=== PATIENT | female | born 1950 | race Caucasian/White ===

== ENCOUNTER → 2024-03-05 | Outpatient (CLI) | payer OTHER, MEDICAID, SELFPAY ==
[2024-03-05 10:23] LABS: Basophils # (Auto) 0.1 Thou/mm3 (0.0-0.2); Basophils % (Auto) 2 % (0-2.5); Eosinophils # (Auto) 0.1 Thou/mm3 (0.0-0.5); Eosinophils % (Auto) 3 % (0-10); Hematocrit 38.3 % (36.0-46.0); Immature Granulocytes % (Auto) 0 % (0-0); Lymphocytes # (Auto) 1.5 Thou/mm3 (1.0-4.8); Lymphocytes % (Auto) 42 % (10-50); Mean Corpuscular HGB Conc 33.9 g/dl (31.0-37.0); Mean Corpuscular Hemoglobin 30.9 pg (25.0-35.0); Mean Corpuscular Volume 91 fL (80-100); Monocytes # (Auto) 0.3 Thou/mm3 (0.0-0.8); Monocytes % (Auto) 10 % (0-12); Neutrophils # (Auto) 1.5 Thou/mm3 (1.8-7.7); Neutrophils % (Auto) 43 % (37-80); Nucleated Red Blood Cell % 0 /100 WBC (0); Platelet Count 287 Thou/mm3 (140-440); RDW Standard Deviation 41.3 fL (36.4-46.3); Red Blood Count 4.21 Miln/mm3 (4.00-5.20); White Blood Count 3.6 Thou/mm3 (3.6-11.0)
[2024-03-05 10:46] LABS: T4 (Thyroxine) 8.7 mcg/dL (4.5-10.9)
[2024-03-05 11:23] LABS: Alanine Aminotransferase 12 U/L (10-49); Albumin, Serum 4.3 gm/dL (3.4-4.8); Albumin/Globulin Ratio 1.9 (1.2-2.2); Alkaline Phosphatase 55 U/L (46-116); Anion Gap 10 (7-16); Aspartate Amino Transferase 17 U/L (0-34); BUN/Creatinine Ratio 20 Ratio (12-20); Bilirubin,Total 0.3 mg/dL (0.3-1.2); Blood Urea Nitrogen 18 mg/dL (9-23); Calcium 9.8 mg/dL (8.3-10.6); Calcium (Corrected) 9.8 mg/dL (8.5-10.1); Carbon Dioxide 26.2 mMol/L (20.0-31.0); Chloride 106 mMol/L (98-107); Creatinine (Component) 0.9 mg/dL (0.6-1.3); Globulin 2.3 gm/dL (2.3-3.5); Glucose 99 mg/dL (74-106); Osmolality,Calculated 285 (275-295); Potassium 3.9 mMol/L (3.4-5.1); Sodium 142 mMol/L (136-145); Thyroid Stimulating Hormone 4.09 uIU/mL (0.55-4.78); Total Protein 6.6 gm/dL (5.7-8.2); eGFR > 60 See Note
[2024-03-05 15:19] LABS: Cardiac Risk Estimate 4.4 RATIO (3.7-5.6); Cholesterol 255 mg/dL (132-200); HDL Cholesterol 58 mg/dL (40-60); LDL Cholesterol,Calculated 134 mg/dL (0-130); Triglycerides 315 mg/dL (30-150)
== END | disposition home or self-care (01) ==
LOC: COPL 09:44
PROVIDERS: PCP Family Medicine; Referring Provider Family Medicine; Visit Provider Family Medicine
DX: I10 Essential (primary) hypertension (principal); N95.8 Other specified menopausal and perimenopausal disorders; K21.9 Gastro-esophageal reflux disease without esophagitis; I25.10 Atherosclerotic heart disease of native coronary artery without angina pectoris; K59.00 Constipation, unspecified; R79.9 Abnormal finding of blood chemistry, unspecified
CPT/HCPCS: 36415; 80053; 80061; 84436; 84443; 85025

== ENCOUNTER → 2024-03-12 | Outpatient (CLI) | payer OTHER, MEDICAID, SELFPAY ==
--- NOTE | 2024-03-12 13:43 | XR_ITS ---
Examination: Cervical spine 3 views Technique one AP lateral coned AP odontoid cervical spine 3 views Exam date and time: 10/11/2023 1407 hours Comparison April 17, 2022 INDICATIONS: Patient fell 5 years ago with injury to the neck, neck pain FINDINGS: No cervical fracture Intact odontoid Advanced degenerative disc disease C3-C4, C5-C6, C6-C7 Incidental note prominent soft tissue carotid calcification IMPRESSION: No cervical fracture Advanced degenerative disc disease C3-C4, C5-C6, C6-C7
--- NOTE | 2024-03-12 13:44 | XR_ITS ---
Examination: Ribs, bilateral, with PA chest, 7 views Technique: Chest PA, RIBS AP, RPO, LPO right and left ribs, AP coned lower ribs 7 views Exam date and time: March 12, 2024 1400 hours INDICATIONS: Bilateral rib pain one year, patient fell with left rib fractures 5 years ago Findings: Normal heart size No pneumothorax Old fracture right first rib and left seventh rib and eighth rib No acute rib fractures No cortical bone destruction IMPRESSION: No pneumothorax pulmonary contusion or hemothorax Old rib fractures as above No acute rib fractures
== END | disposition home or self-care (01) ==
LOC: CDIM 13:35
PROVIDERS: PCP Family Medicine; Referring Provider Family Medicine; Visit Provider Family Medicine
DX: M50.31 Other cervical disc degeneration, high cervical region (principal); M54.2 Cervicalgia; R07.81 Pleurodynia; Z87.81 Personal history of (healed) traumatic fracture; S19.9XXS Unspecified injury of neck, sequela; S29.9XXS Unspecified injury of thorax, sequela; W19.XXXS Unspecified fall, sequela
CPT/HCPCS: 71111; 72040

== ENCOUNTER 2024-09-09 07:49 | Emergency (ER) | payer OTHER, MEDICAID, SELFPAY ==
[2024-09-09] VITALS (7 sets, daily range): BP systolic 150–172; BP diastolic 69–89; PULSE 53–88; RESP 14–20; TEMP 36.6; O2SAT 94–98; BMI 28.8
--- NOTE | 2024-09-09 08:16 | EKG_ITS ---
[facility] Test Date: 2024-09-09 Pat Name: FLORENCE RICARDO Department: Room: - Gender: Female Income Tax Preparer: : 1950 Requested By: ED Temporary Provider Order Number: [id number] Reading MD: ED Temporary Provider Measurements Intervals [place] Rate: 64 P: 58 OR: 184 QRS: 22 QRSD: 82 T: 60 QT: 404 QTc: 418 Interpretive Statements SINUS RHYTHM LOW QRS VOLTAGE IN PRECORDIAL LEADS [QRS DEFLECTION < 1.0 mV IN CHEST LEADS] Compared to ECG 12/12/2023 13:41:28 Low QRS voltage now present /store/S0/[id number].pdf
--- NOTE | 2024-09-09 08:16 | PD.EDADULT ---
ED General RME/HPI General Chief complaint: Dizziness Stated complaint: DIZZY/UP X 2 DAYS, CHEST PAIN WITH PALPATION TODAY Time Seen by Provider: 09/09/24 13:17 Arrival date/time: 09/09/24 07:49 Limitations: no limitations RME / HPI RME / HPI narrative: DR. ARMSTRONG MAIN ED EVALUATION: 74 year old female presents to the Emergency Department with complaints of dizziness and hypertension onset of symptoms this morning, but patient also had similar symptoms on Saturday 2 days ago. Normal gait. No vision problems. No neurological deficits. No other symptoms reported. PMHx: Hypertension, CAD, previous stent of the right coronary artery in the past, on Plavix, status post ovarian tumor removal, and a hiatal hernia. Social Hx: No tobacco, alcohol, or substance use. Related Data Home Medications ?Medication ?Instructions ?Recorded ?Confirmed dexlansoprazole 60 mg 60 mg PO QDAY ##0 12/12/14 12/13/23 capsule,biphase delayed release (Dexilant) docusate sodium 250 mg capsule 250 mg PO DAILY 03/26/22 12/13/23 estradiol 1 mg tablet 1 mg PO QDAY 03/26/22 12/13/23 hydrochlorothiazide 12.5 mg tablet 12.5 mg PO QAM 03/26/22 12/13/23 lisinopril 10 mg tablet 10 mg PO QDAY 03/26/22 12/13/23 clopidogrel 75 mg tablet (Plavix) 75 mg PO QDAY 06/27/23 12/13/23 Held on 12/16/23. Instructions: Resume on 12/18/23. estradiol 0.01% (0.1 mg/gram) 2 g vaginal DIRECTED 06/27/23 12/13/23 vaginal cream (Estrace) vibegron 75 mg tablet (Gemtesa) 75 mg PO QDAY 06/27/23 12/13/23 Previous Rx's ?Medication ?Instructions ?Recorded buspirone 7.5 mg tablet 7.5 mg PO BID #20 tabs 09/09/24 Allergies Allergy/AdvReac Type Severity Reaction Status Date / Time codeine Allergy Intermediate Vomiting Verified 12/13/23 14:43 Review of Systems Review of Systems Systems Reviewed: All systems reviewed, normal except as documented Past Medical History Past Medical History CARDIAC: Positive Cardiac Disorders, Angina, Coronary Artery Disease (CORONARY STENT X2 2010,2021), Hypercholesterolemia (TAKES MED) and Hypertension (TAKES MED) GASTROINTESTINAL: Positive Gastrointestinal Disorders, Hepatitis (C), Gall Bladder Disease (LAP), Diverticulitis, Hiatal Hernia, Hemorrhoids, Gastroesophageal Reflux Disease and Obesity GENITOURINARY: Positive Genitourinary Disorders (URINARY URGENCY) REPRODUCTIVE: Positive Previous Pregnancies (X3) MUSCULOSKELETAL: Positive Musculoskeletal Disorders, Arthritis and Fractures (5 broken ribs DUE TO FALL YRS AGO) PSYCHO/SOCIAL: Positive Depression and Anxiety OTHER HISTORY: Positive Chicken Pox, Measles and Mumps Family History FAMILY HISTORY: Positive Family Respiratory Disorders (sister has COPD), Family Cardiac Disorders (sister (mi)BROTHER,SISTER (HTN)), Family Cancer (mother had colon CA) and Family Surgery (SISTER,MOTHER,FATHER) Surgical History SURGICAL: Positive Cardiac Surgery, Coronary Stent (X2), Angiogram, Tonsillectomy, Abdominal Surgery and Hysterectomy (1973, tumor in ovary removal in [place] WITH PEG SALP) Social History SMOKING STATUS: Former smoker SECOND HAND EXPOSURE: No SUBSTANCE USE: does not use and marijuana ED Exam General Limitations: Present no limitations General appearance: Present alert and in no apparent distress Head Head exam: Present atraumatic, normocephalic and normal inspection Eye Eye exam: Present normal appearance, PERRL and EOMI ENT ENT exam: Present normal exam, normal oropharynx and mucous membranes moist Neck Neck exam: Present normal inspection, full ROM and trachea midline Chest Chest inspection: Present normal inspection and symmetric chest wall rise Respiratory Respiratory exam: Present normal lung sounds bilaterally Cardiovascular Cardiovascular exam: Present regular rate, normal rhythm and normal heart sounds Abdominal Exam Abdominal exam: Present soft and normal bowel sounds Extremities Exam Extremities exam: Present normal inspection and full ROM Back Exam Back exam: Present normal inspection and full ROM Neurological Exam Neurological exam: Present alert, oriented X3 and CN II-XII intact Psychiatric Psychiatric exam: Present normal affect and normal mood Skin Skin exam: Present warm, dry, intact and normal color Course Quality Measures none Orders Category Date Time Status CT Screening NOW Care 09/09/24 09:24 Active EKG (ED ONLY) *Do not use* NOW Care 09/09/24 08:[address] angio chest Stat Exams 09/09/24 09:[address] head/brain wo con Stat Exams 09/09/24 09:24 Completed EKG (ED Only) Stat Exams 09/09/24 08:16 Draft B-Type Natriuretic Peptide Stat Lab 09/09/24 08:27 Completed CBC Stat Lab 09/09/24 08:27 Completed Comprehensive Metabolic Panel Stat Lab 09/09/24 08:27 Completed LDH (Lactate Dehydrogenase) Stat Lab 09/09/24 08:27 Completed Magnesium Stat Lab 09/09/24 08:27 Completed Prothrombin Time with INR Stat Lab 09/09/24 08:27 Completed Troponin I Stat Lab 09/09/24 08:27 Completed Urinalysis Stat Lab 09/09/24 10:05 Completed Vital Signs Vital signs: Vital Signs Temperature 98 F 09/09/24 08:09 Pulse Rate 68 09/09/24 08:09 Respiratory Rate 18 09/09/24 08:09 Blood Pressure 169/70 H 09/09/24 08:09 Pulse Oximetry (%) 98 09/09/24 08:09 Oxygen Delivery Method Room Air 09/09/24 08:09 Discharge Plan Plan Patient Disposition: HOME (Self Care) Prescriptions/Referrals Prescriptions/Med Rec: New buspirone 7.5 mg tablet 7.5 mg PO BID Qty: 20 0RF No Action clopidogrel [Plavix] 75 mg tablet 75 mg PO QDAY Gemtesa 75 mg tablet 75 mg PO QDAY estradiol [Estrace] 0.01 % (0.1 mg/gram) cream 2 g vaginal DIRECTED Patient Comments: twice a week dexlansoprazole [Dexilant] 60 MG capsule,biphase delayed releas 60 mg PO QDAY Qty: 0 estradiol 1 mg Tablet 1 mg PO QDAY Rx Instructions: off 1 week; repeat cycle lisinopril 10 mg Tablet 10 mg PO QDAY docusate sodium 250 mg capsule 250 mg PO DAILY hydrochlorothiazide 12.5 mg Tablet 12.5 mg PO QAM Referrals: Tanisha Samuel MD [Primary Care Provider] - In 1 week Problem List Clinical Impression: Chest pain, Non-cardiac chest pain Patient/Caregiver Discharge Instructions Education Materials: ED Chest Pain, Noncardiac, ED Chest Pain, Uncertain Cause Print Language: Latvian Stand Alone Forms: Lizzy Award Info., Patient Portal Info Letter MDM Narrative MDM hospital course: I, Cony Nice am scribing for and in the presence of Dr. Armstrong. Differential diagnosis: Aortic dissection and PE. But likely hypertensive emergency and anxiety. Plan: Order head CT and chest CTA, then reevaluate. 1315: Patient remains clinically stable throughout the emergency department visit. Re-assessment at the time of disposition demonstrates that the patient is in no acute distress. We reviewed all the results, analysis, and treatment plans. Patient is amenable to discharge. Strict return precautions were outlined. Patient was discharged in stable condition. Discharged with chest pain and non-cardiac chest pain. Clinical Information Provided by patient Medical Records Reviewed [facility] Meds/Rx Considered, not Ordered None Labs/Rad/Tests considered, not Ordered None Chronic Illness/Social Conditions Add or document further as needed: Hypertension, CAD, previous stent of the right coronary artery in the past, on Plavix, status post ovarian tumor removal, and a hiatal hernia. EKG EKG Interpretation narrative: EKG#1: EKG at 0824 hours. Interpreted by me: sinus rhythm, rate 64, LVH, no ischemia, normal intervals Lab Interpretation Labs: see narrative above Imaging Radiology reports / interpretation(s): Procedure(s): CT head/brain wo con Accession Number(s): [id number] cc: Sanjay Escalona MD; Nci Retana MD; Tanisha Samuel MD~ Examination: CT brain head without contrast. 2-D sagittal coronal reconstructions Date and time of exam:September 09, 2024 1131 hours Comparison April 18, 2022 INDICATIONS: Generalized head pain today CTDI: vol (mGy):49.5 DLP: (mGycm):1028 Technique: Multiple CT axial sections of the brain have been obtained, 5 mm slice thickness. Contrast has not been administered. 2-D sagittal, coronal reconstructions have been obtained Low dose protocols were performed. One or more of the following dose reduction techniques were used; automated exposure control, adjustment of the mA and/or KV according to patient size, use of iterative reconstruction technique. Findings: No significant ventricular enlargement. Intra-axial or extra-axial hemorrhage density is not seen. No mass effect or midline shift Basal cisterns are not remarkable. Fourth ventricle is midline. Cranial vault intact. Impression: Negative for acute hemorrhage, mass effect or midline shift Advise clinical correlation follow-up accordingly Dictated By: Nic Retana MD Procedure(s): CT angio chest Accession Number(s): [id number] cc: Sanjay Escalona MD; Nic Retana MD; Tanisha Samuel MD~ Examination: CTA chest with intravenous contrast 2-D reconstructions 3-D reconstructions, vascular Date and time of exam: September 09, 2024 1137 hours INDICATIONS: Chest pain with cardiac palpitations today CTDI: vol (mGy) 13.5 DLP: (mGycm) 300 Technique: Multiple axial sections of the thorax have been obtained. 3 mm slice thickness, from below the hemidiaphragms to above the apices of the lungs. Mediastinal and lung density settings have been obtained. 2-D sagittal and coronal reconstructions. 3-D angiographic renderings, 3-D volume renderings, 3D post processing, vascular maximum intensity projections obtained. Contrast administered is 100 cc Isovue-370. Low dose protocols were performed. One or more of the following dose reduction techniques were used; automated exposure control, adjustment of the mA and/or KV according to patient size, use of iterative reconstruction technique. Findings: No thoracic aortic aneurysm dilatation or dissection Pulmonary artery segments are not enlarged No pulmonary artery filling defects No paratracheal tracheobronchial or bronchopulmonary adenopathy No pneumonia or pulmonary edema or pleural disease No visualized liver or splenic lesion Absent gallbladder No pancreatic or adrenal mass Kidneys partially visualized no hydronephrosis IMPRESSION: Negative for pulmonary artery emboli No pneumonia, pulmonary edema or pleural disease Dictated By: Nic Retana MD Medication Administration(s) none Diagnosis Differential diagnosis: Aortic dissection and PE. But likely hypertensive emergency and anxiety. Most likely dx, and/or detailed dx discussion: Chest pain Non-cardiac chest pain Dispositon Disposition: Discharge Home
--- NOTE | 2024-09-09 08:20 | PC.NURSE ---
PT WITH C/O ALMOST PASSING OUT ON SATURDAY AND SATURDAY. HEADACHE AND DIZZINESS SINCE SATURDAY.
--- NOTE | 2024-09-09 09:24 | XR_ITS ---
Examination: CTA chest with intravenous contrast 2-D reconstructions 3-D reconstructions, vascular Date and time of exam: September 09, 2024 1137 hours INDICATIONS: Chest pain with cardiac palpitations today CTDI: vol (mGy) 13.5 DLP: (mGycm) 300 Technique: Multiple axial sections of the thorax have been obtained. 3 mm slice thickness, from below the hemidiaphragms to above the apices of the lungs. Mediastinal and lung density settings have been obtained. 2-D sagittal and coronal reconstructions. 3-D angiographic renderings, 3-D volume renderings, 3D post processing, vascular maximum intensity projections obtained. Contrast administered is 100 cc Isovue-370. Low dose protocols were performed. One or more of the following dose reduction techniques were used; automated exposure control, adjustment of the mA and/or KV according to patient size, use of iterative reconstruction technique. Findings: No thoracic aortic aneurysm dilatation or dissection Pulmonary artery segments are not enlarged No pulmonary artery filling defects No paratracheal tracheobronchial or bronchopulmonary adenopathy No pneumonia or pulmonary edema or pleural disease No visualized liver or splenic lesion Absent gallbladder No pancreatic or adrenal mass Kidneys partially visualized no hydronephrosis IMPRESSION: Negative for pulmonary artery emboli No pneumonia, pulmonary edema or pleural disease
--- NOTE | 2024-09-09 09:24 | XR_ITS ---
Examination: CT brain head without contrast. 2-D sagittal coronal reconstructions Date and time of exam:September 09, 2024 1131 hours Comparison April 18, 2022 INDICATIONS: Generalized head pain today CTDI: vol (mGy):49.5 DLP: (mGycm):1028 Technique: Multiple CT axial sections of the brain have been obtained, 5 mm slice thickness. Contrast has not been administered. 2-D sagittal, coronal reconstructions have been obtained Low dose protocols were performed. One or more of the following dose reduction techniques were used; automated exposure control, adjustment of the mA and/or KV according to patient size, use of iterative reconstruction technique. Findings: No significant ventricular enlargement. Intra-axial or extra-axial hemorrhage density is not seen. No mass effect or midline shift Basal cisterns are not remarkable. Fourth ventricle is midline. Cranial vault intact. Impression: Negative for acute hemorrhage, mass effect or midline shift Advise clinical correlation follow-up accordingly
--- NOTE | 2024-09-09 10:07 | PC.NURSE ---
UA OBATAINED AND SENT TO LAB
[2024-09-09 10:15] LABS: Collection Type, Urine Clean Catch
[2024-09-09 10:16] LABS: Basophils # (Auto) 0.1 Thou/mm3 (0.0-0.2); Basophils % (Auto) 2 % (0-2.5); Eosinophils # (Auto) 0.1 Thou/mm3 (0.0-0.5); Eosinophils % (Auto) 2 % (0-10); Hematocrit 37.5 % (36.0-46.0); Hemoglobin 13.1 g/dL (12.0-16.0); Immature Granulocytes % (Auto) 0 % (0-0); Lymphocytes # (Auto) 1.6 Thou/mm3 (1.0-4.8); Lymphocytes % (Auto) 40 % (10-50); Mean Corpuscular HGB Conc 34.9 g/dl (31.0-37.0); Mean Corpuscular Hemoglobin 30.8 pg (25.0-35.0); Mean Corpuscular Volume 88 fL (80-100); Monocytes # (Auto) 0.4 Thou/mm3 (0.0-0.8); Monocytes % (Auto) 10 % (0-12); Neutrophils # (Auto) 1.9 Thou/mm3 (1.8-7.7); Neutrophils % (Auto) 46 % (37-80); Nucleated Red Blood Cell % 0 /100 WBC (0); Platelet Count 292 Thou/mm3 (140-440); RDW Standard Deviation 40.7 fL (36.4-46.3); Red Blood Count 4.26 Miln/mm3 (4.00-5.20); White Blood Count 4.1 Thou/mm3 (3.6-11.0)
[2024-09-09 10:24] LABS: Bacteria,Urine Rare; Bilirubin,Urine Negative (Negative); Blood,Urine Negative (Negative); Clarity,Urine Clear (Clear/Hazy); Color,Urine Lt-Yellow (Lt Yel-Yel); Glucose, Urine Negative (Negative); Ketones,Urine Negative (Negative); Leukocyte Esterase,Urine Negative (Negative); Nitrite,Urine Negative (Negative); PH,Urine 6.5 (5.0-7.0); Protein,Urine Negative (Neg - Trace); RBC,Urine 1 /hpf (0-3); Specific Gravity,Urine 1.011 (1.001-1.035); Squamous Epithelial Cell,Urine 7 /hpf (0-5); Urobilinogen,Urine Negative mg/dL (0.0-1.0); WBC,Urine < 1 /hpf (0-5)
[2024-09-09 10:34] LABS: Prothrombin Time 10.8 Seconds (9.0-12.2)
[2024-09-09 10:41] LABS: Alanine Aminotransferase 12 U/L (10-49); Albumin, Serum 4.1 gm/dL (3.4-4.8); Albumin/Globulin Ratio 1.8 (1.2-2.2); Alkaline Phosphatase 55 U/L (46-116); Anion Gap 10 (7-16); Aspartate Amino Transferase 17 U/L (0-34); B-Type Natriuretic Peptide 31 pg/mL (0-100); BUN/Creatinine Ratio 14 Ratio (12-20); Bilirubin,Total 0.4 mg/dL (0.3-1.2); Blood Urea Nitrogen 11 mg/dL (9-23); Calcium 9.1 mg/dL (8.3-10.6); Calcium (Corrected) 9.1 mg/dL (8.5-10.1); Carbon Dioxide 25.7 mMol/L (20.0-31.0); Chloride 101 mMol/L (98-107); Creatinine (Component) 0.8 mg/dL (0.6-1.3); Estimated Creatinine Clearance 68.5 mL/min (>60); Globulin 2.3 gm/dL (2.3-3.5); Glucose 94 mg/dL (74-106); LDH (Lactate Dehydrogenase) 153 U/L (120-246); Magnesium 1.7 mg/dL (1.6-2.6); Osmolality,Calculated 273 (275-295); Potassium 3.6 mMol/L (3.4-5.1); Sodium 137 mMol/L (136-145); Total Protein 6.4 gm/dL (5.7-8.2); Troponin I < 0.002 ng/mL (0.0-0.045); eGFR > 60 See Note
== END 2024-09-09 13:30 | disposition home or self-care (01) ==
PROVIDERS: Emergency Provider Emergency Medicine; PCP Family Medicine
DX: R07.89 Other chest pain (principal); R51.9 Headache, unspecified; R94.31 Abnormal electrocardiogram [ECG] [EKG]; I10 Essential (primary) hypertension; E78.00 Pure hypercholesterolemia, unspecified; I25.10 Atherosclerotic heart disease of native coronary artery without angina pectoris; Z95.5 Presence of coronary angioplasty implant and graft; Z79.02 Long term (current) use of antithrombotics/antiplatelets; Z87.891 Personal history of nicotine dependence
CPT/HCPCS: 36415; 70450; 71275; 80053; 81001; 83615; 83735; 83880; 84484; 85025; 85610; 93005; 99285; A4649; Q9967